=== PATIENT | male | born 1970 | race Caucasian/White ===

== ENCOUNTER 2017-04-21 14:08 | Inpatient (IN) | payer OTHER ==
[~2017-04-21] VITALS: Ht 185.4 cm; Wt 93.6 kg
[2017-04-21 15:41] LABS: HEMATOCRIT 46.9 % (38.0-50.0); MCH 29.5 PG (29.0-34.0); MCHC 32.6 G/DL (30.0-36.0); MCV 90.4 FL (86-99); MEAN PLAT.VOLUME 10.8 uM^3 (9.0-12.4); PLATELET COUNT 209 K/uL (156-360); RBC DIS.WIDTH-CV 12.7 % (11.8-14.6); RBC DIS.WIDTH-SD 42.7 % (39-53); RED BLOOD COUNT 5.19 M/uL (4.00-5.50); WHITE BLOOD COUNT 9.8 K/uL (4.1-10.2)
[2017-04-21 15:51] LABS: CHLORIDE 108 mEq/L (99-109); POTASSIUM 4.3 mEq/L (3.7-5.4); SODIUM 141 mEq/L (136-147)
[2017-04-21 15:53] LABS: GLUCOSE 99 mg/dL (70-99)
[2017-04-21 15:54] LABS: ANION GAP 11 MEQ/L (2-14)
[2017-04-21 15:57] LABS: GFR ESTIMATE (CALCULATED) > 59 mL/min/
[2017-04-21 15:58] LABS: UREA NITROGEN (BUN) 17 mg/dL (9-23)
[2017-04-21 16:02] LABS: TROP-I INTERPRETATION NEGATIVE; TROPONIN-I < 0.01 ng/mL (0.0-0.30)
[2017-04-21] MEDS ORDERED: TYLENOL EXTRA500 MG PO (17:01)
[2017-04-21 18:26] VITALS: BP 126/79
[2017-04-21 22:19] LABS: D-DIMER ELISA < 150.00 ng/mLDDU (<230)
[2017-04-21 22:49] LABS: TROP-I INTERPRETATION NEGATIVE; TROPONIN-I 0.01 ng/mL (0.0-0.30)
[2017-04-22 00:06] VITALS: BP 112/74
[2017-04-22 04:23] VITALS: BP 109/67
[2017-04-22 04:44] LABS: TROP-I INTERPRETATION NEGATIVE; TROPONIN-I < 0.01 ng/mL (0.0-0.30)
[2017-04-22 19:58] VITALS: BP 110/57
[2017-04-22 23:38] VITALS: BP 101/57
[2017-04-23 04:36] VITALS: BP 94/51
[2017-04-23 07:41] VITALS: BP 100/60
[2017-04-23 09:15] LABS: HEMATOCRIT 43.8 % (38.0-50.0); MCH 29.6 PG (29.0-34.0); MCHC 32.9 G/DL (30.0-36.0); MCV 90.1 FL (86-99); MEAN PLAT.VOLUME 10.8 uM^3 (9.0-12.4); PLATELET COUNT 209 K/uL (156-360); RBC DIS.WIDTH-CV 12.7 % (11.8-14.6); RBC DIS.WIDTH-SD 42.3 % (39-53); RED BLOOD COUNT 4.86 M/uL (4.00-5.50); WHITE BLOOD COUNT 10.9 K/uL (4.1-10.2)
[2017-04-23] MEDS ORDERED: ATORVASTATIN CA40 MG PO (09:15)
[2017-04-23] MEDS ORDERED: LO-DOSE ASPIRIN81 M1 PO (09:16)
[2017-04-23] MEDS ORDERED: IMDUR30 MG PO (09:17)
[2017-04-23] MEDS ORDERED: ATENOLOL25 MG PO (09:17)
[2017-04-23] MEDS ORDERED: NITROSTAT0.4 MG SL (09:17)
[2017-04-23 09:30] LABS: ANION GAP 10 MEQ/L (2-14); CHLORIDE 105 MEQ/L (99-109); GFR ESTIMATE (CALCULATED) > 59 mL/min/; GLUCOSE 110 mg/dL (70-99); POTASSIUM 4.2 MEQ/L (3.7-5.4); SAMPLE HEMOLYSIS CHECK 0; SAMPLE ICTERIC CHECK 0; SAMPLE LIPEMIA CHECK 0; SODIUM 138 MEQ/L (136-147); UREA NITROGEN (BUN) 13 mg/dL (9-23)
[2017-04-23 11:44] VITALS: BP 113/64
== END 2017-04-23 13:57 | disposition home or self-care (01) | DRG 287 ==
LOC: EME 14:08 → EDOF 16:31 → 5WEST 16:31 → EDOF 16:31 → ENRESERV 16:35 → 5WEST 18:07 → 4EAST 04-22 14:17 → ENRESERV 04-22 14:20 → 5WEST 04-22 14:21 → ENRESERV 04-22 15:43 → 4EAST 04-22 16:26
PROVIDERS: Emergency Medicine; Internal Medicine; Physician Assistant Medical
DX: I25.110 Atherosclerotic heart disease of native coronary artery with unstable angina pectoris (principal); K21.9 Gastro-esophageal reflux disease without esophagitis; Z87.891 Personal history of nicotine dependence; Z87.11 Personal history of peptic ulcer disease; I25.2 Old myocardial infarction; Z86.73 Personal history of transient ischemic attack (TIA), and cerebral infarction without residual deficits
CPT/HCPCS: 71010; 80048; 84484; 85027; 85379; 93005; 99281; 99285; C1769; C1887; G0378; J1644; J1650; J2250; J3010; J7030; J7040

== ENCOUNTER 2017-06-02 05:16 | Day surgery (SDC) | payer OTHER ==
[~2017-06-02] VITALS: Ht 185.4 cm; Wt 91.2 kg
[~2017-06-02 05:16] MED LIST: ATENOLOL25 MG PO; ATORVASTATIN CA40 MG PO; CALAMINE LOTIO120 ML TP; IMDUR30 MG PO; LO-DOSE ASPIRIN81 M1 PO; NITROSTAT0.4 MG SL; TYLENOL EXTRA500 MG PO; [UNRECOGNIZED DRUG - OTHER] TP; [UNRECOGNIZED DRUG - OTHER] TP
[2017-06-02 06:16] VITALS: BP 107/68
[2017-06-02] MEDS ORDERED: PERCOCET 5/31 TABLET PO (09:54)
[2017-06-02] MEDS ORDERED: COLACE100 MG PO (09:54)
[2017-06-02 11:50] VITALS: BP 112/56
[2017-06-02 12:50] VITALS: BP 101/58
[2017-06-02 14:25] VITALS: BP 111/67
== END 2017-06-02 14:27 | disposition home or self-care (01) ==
LOC: SDC 05:16
PROC: 0YU54JZ Supplement Right Inguinal Region with Synthetic Substitute, Percutaneous Endoscopic Approach (ICD-10-PCS; principal; 2017-06-02)
DX: K40.90 Unilateral inguinal hernia, without obstruction or gangrene, not specified as recurrent (principal); I10 Essential (primary) hypertension; E78.5 Hyperlipidemia, unspecified; Z79.82 Long term (current) use of aspirin; Z87.891 Personal history of nicotine dependence
CPT/HCPCS: C1727; C1781; J0131; J0330; J0690; J1100; J1170; J2250; J2405; J2710; J3010

== ENCOUNTER 2017-11-18 12:28 | Emergency (ER) | payer OTHER ==
[~2017-11-18] VITALS: Ht 185.4 cm; Wt 96.4 kg
[~2017-11-18 12:28] MED LIST changes: +COLACE100 MG PO; +PERCOCET 5/31 TABLET PO
[2017-11-18] MEDS ORDERED: NAPROSYN500 MG PO (14:35)
[2017-11-18] MEDS ORDERED: NORCO 5/3251 TABLET PO (14:35)
[2017-11-18] MEDS ORDERED: AUGMENTIN875 MG PO (14:35)
[2017-11-18 15:27] VITALS: BP 104/70
== END 2017-11-18 15:28 | disposition home or self-care (01) ==
LOC: EME 12:28
PROC: 3E0234Z Introduction of Serum, Toxoid and Vaccine into Muscle, Percutaneous Approach (ICD-10-PCS; principal; 2017-11-18)
PROC: 0HQFXZZ Repair Right Hand Skin, External Approach (ICD-10-PCS; principal; 2017-11-18)
DX: S62.632B Displaced fracture of distal phalanx of right middle finger, initial encounter for open fracture (principal); S61.215A Laceration without foreign body of left ring finger without damage to nail, initial encounter; W54.0XXA Bitten by dog, initial encounter; Z23 Encounter for immunization; E78.5 Hyperlipidemia, unspecified; I25.2 Old myocardial infarction; Z87.891 Personal history of nicotine dependence; Z79.82 Long term (current) use of aspirin
CPT/HCPCS: 73140; 99281; 99284; S0020